=== PATIENT | female | born 1990 | race Caucasian/White ===

== ENCOUNTER 2021-04-29 08:30 | Day surgery (SDC) | payer OTHER | END 2021-04-29 15:50 | disposition home or self-care (01) | LOC: CIR.AMB 08:30 | PROVIDERS: ATTEND Obstetrics & Gynecology Maternal & Fetal Medicine | DX: O02.1 Missed abortion (principal); Z20.822 Contact with and (suspected) exposure to COVID-19 ==

== ENCOUNTER 2025-01-21 08:19 | Outpatient (CLI) | payer OTHER ==
[2025-01-21 09:15] LABS: BASO % 0.5 % (0.1-1.2); EOS # 0.18 (0.04-0.54); EOS % 3.0 % (0.7-7.0); LYMPH # 1.87 (1.18-3.74); LYMPH % 31.2 % (19.3-53.1); MEAN PLATELET VOLUME 10.10 fl (9.4-12.4); MONO # 0.41 (0.24-0.82); MONO % 6.8 % (4.7-12.5); NEUT # 3.49 (1.56-6.13); NEUT % 58.3 % (34.0-71.1); RED CELL DISTRIBUTION WIDTH 12.1 % (11.6-14.4)
[2025-01-21 09:19] LABS: URINE APPEARANCE Clear; URINE BILIRRUBIN Negative (NEGATIVE); URINE BLOOD Small; URINE COLOR Yellow; URINE GLUCOSE Negative (NEGATIVE); URINE KETONE Negative (NEGATIVE); URINE LEUKOCYTE Negative; URINE NITRATE Negative; URINE PROTEIN Negative (NEGATIVE); URINE UROBILINOGEN 0.2 E.U./dl
[2025-01-21 09:23] LABS: URINE BACTERIA 189.5 uL (0.0-1933); URINE EPITHELIAL CELLS 3.0 uL (0.0-38.8); URINE RBC 8.3 uL (0.0-20.8)
[2025-01-21 09:39] LABS: URINE CAST 0.00 uL (0.0-1.40); URINE WBC 0.7 uL (0.0-23.2)
[2025-01-21 09:59] LABS: COL EPI 89 SECONDS (82-175)
[2025-01-21 10:03] LABS: INR 1.00
[2025-01-21 10:30] LABS: ALT/SGPT 15.0 U/L (12-78); AST/SGOT 9.0 U/L (15-37); BILIRUBIN TOTAL 0.41 mg/dL (0.3-1.2); BUN CREA RATIO 10.0 (7.0-25.0); CREATININE SERUM 0.58 mg/dL (0.55-1.02); GFR 119.72; GLOBULINA 3.1 G/DL (2.4-3.5); GLUCOSE FASTING 87.0 mg/dL (65-100); OSMOLALITY SERUM 275.0 MOSM/KG (275-295)
== END 2025-01-21 08:30 | disposition home or self-care (01) ==
LOC: LAB 08:19
PROVIDERS: ATTEND Orthopaedic Surgery
DX: D64.9 Anemia, unspecified (principal); E88.9 Metabolic disorder, unspecified; D68.8 Other specified coagulation defects; N39.0 Urinary tract infection, site not specified; Z22.322 Carrier or suspected carrier of Methicillin resistant Staphylococcus aureus; E11.9 Type 2 diabetes mellitus without complications; Z76.89 Persons encountering health services in other specified circumstances